=== PATIENT | female | born 1935 | race Caucasian/White ===

== ENCOUNTER 2017-11-17 09:56 | Day surgery (SDC) | payer MEDICARE, BC ==
[~2017-11-17 09:56] MED LIST: PROPOFOL 500 MG/50 ML EMU IV ONE
[2017-11-17 11:52] VITALS: TEMP 97.1
[2017-11-17 12:33] VITALS: BP 137/72; PULSE 72; RESP 18; O2SAT 95
== END 2017-11-17 12:46 | disposition home or self-care (01) | DRG 951 ==
LOC: SURG 09:56
PROVIDERS: ATTEND Internal Medicine Gastroenterology
DX: Z12.11 Encounter for screening for malignant neoplasm of colon (principal); D12.0 Benign neoplasm of cecum; K57.30 Diverticulosis of large intestine without perforation or abscess without bleeding; Z86.010 Personal history of colon polyps; L29.0 Pruritus ani; K64.8 Other hemorrhoids; K63.5 Polyp of colon
CPT/HCPCS: J2704